=== PATIENT | female | born 1980 | race African-American/Black ===

== ENCOUNTER 2019-01-14 17:25 | Emergency (ER) | payer SELFPAY ==
[2019-01-14 18:14] LABS: Absolute Lymphocytes (CBC) 1.9 K/uL (0.7-4.9); Basophils % 0.4 % (0-1.3); Eosinophils % 1.4 % (0-4.4); Hematocrit 35.8 % (36.0-45.0); Lymphocytes % 21.4 % (15.3-44.8); MPV 10.4 fL (7.6-11.3)
[2019-01-14 18:31] LABS: Potassium 3.9 mmol/L (3.5-5.1)
[2019-01-14 18:56] LABS: Urine Blood 3+ (NEG); Urine Glucose NEGATIVE (NEG); Urine Protein 2+ (NEG); Urine Specific Gravity >1.030 (1.005-1.030); Urine pH 5.5 (5.0-7.0)
--- NOTE | 2019-01-14 22:04 | ER ---
Nurse's Notes [facility] Name: Miguel Weber Age: 38 yrs Sex: Female : 1980 Arrival Date: 01/14/2019 Time: 17:27 Bed 23 Private MD: Unknown, Unknown Diagnosis: Spontaneous Presentation: 01/14 17:31 Presenting complaint: Patient states: She had a miscarriage last month, her bleeding aj1 started again 2 days ago, and then today it became heavy with clots. Transition of care: patient was not received from another setting of care. Onset of symptoms was January 14, 2019. Risk Assessment: Do you want to hurt yourself or someone else? Patient reports no desire to harm self or others. Initial Sepsis Screen: Does the patient meet any 2 criteria? HR > 90 bpm. No. Patient's initial sepsis screen is negative. Does the patient have a suspected source of infection? No. Patient's initial sepsis screen is negative. Care prior to arrival: None. 17:31 Method Of Arrival: Ambulatory aj1 17:31 Acuity: CAMILA 3 aj1 Triage Assessment: 17:33 General: Appears in no apparent distress. comfortable, Behavior is calm, cooperative, aj1 appropriate for age. Pain: Complains of pain in right lower quadrant and left lower quadrant Pain currently is 6 out of 10 on a pain scale. Neuro: Level of Consciousness is awake, alert, obeys commands. Cardiovascular: Patient's skin is warm and dry. Respiratory: Airway is patent Respiratory effort is even, unlabored, Respiratory pattern is regular, symmetrical. : Reports vaginal bleeding that is bright red, with clots, heavy flow. [employer]: 17:33 LMP 12/2018 aj1 18:13 6, Full Term 4, 1, LMP 10/29/2018, Verified, EDC 08/05/2019, jr8 Gestational age from LMP: 11 weeks 1 day, LMP is approximate - reports 6 weeks gestation on 12/10/18 Historical: - Allergies: 17:33 Phenergan; aj1 - Home Meds: 17:33 None [Active]; aj1 - PMHx: 17:33 None; aj1 - PSHx: 17:33 None; aj1 - Immunization history:: Flu vaccine is not up to date. - Social history:: Smoking status: Patient/guardian denies using tobacco. - Ebola Screening: : Patient denies travel to an Ebola-affected area in the 21 days before illness onset. Screenin:14 Abuse screen: Denies threats or abuse. Denies injuries from another. Nutritional mg2 screening: No deficits noted. Tuberculosis screening: No symptoms or risk factors identified. Fall Risk IV access (20 points). Assessment: 18:14 General: Appears in no apparent distress. comfortable, Behavior is calm, cooperative. mg2 Pain: Complains of pain in abdomen Pain does not radiate. Pain currently is 1 out of 10 on a pain scale. Quality of pain is described as crampy, Pain began gradually. Neuro: Level of Consciousness is awake, alert, obeys commands, Oriented to person, place, time, situation. Cardiovascular: Capillary refill < 3 seconds Patient's skin is warm and dry. Respiratory: Airway is patent Respiratory effort is even, unlabored, Respiratory pattern is regular, symmetrical. GI: No signs and/or symptoms were reported involving the gastrointestinal system. : Reports pain lower quadrant(s) vaginal bleeding that is. EENT: No signs and/or symptoms were reported regarding the EENT system. Derm: Skin is intact, is healthy with good turgor, Skin is pink, warm \T\ dry. normal. Musculoskeletal: Circulation, motion, and sensation intact. Capillary refill < 3 seconds. Vital Signs: 17:33 BP 133 / 62; Pulse 99; Resp 18; Temp 99.2; Pulse Ox 100% on R/A; Weight 88.45 kg (R); aj1 Height 5 ft. 2 in. (157.48 cm) (R); 20:03 BP 108 / 59; Pulse 65; Resp 17; Pulse Ox 100% on R/A; Pain 0/10; mg2 22:10 BP 110 / 78; Pulse 70; Resp 18; Temp 98; Pulse Ox 100% on R/A; Pain 0/10; mg2 17:33 Body Mass Index 35.67 (88.45 kg, 157.48 cm) aj1 ED Course: 17:27 Patient arrived in ED. ag5 17:28 Unknown, Unknown is Private Physician. ag5 17:33 Triage completed. aj1 17:33 Arm band placed on Patient placed in an exam room. aj1 17:44 Zion Aguilar PA is [facility]. jr8 17:44 Rey Woodward MD is Attending Physician. jr8 17:58 Den Mims, RN is Primary Nurse. mg2 18:14 No provider procedures requiring assistance completed. Inserted saline lock: 20 gauge mg2 in right antecubital area, using aseptic technique. Blood collected. 18:17 Patient has correct armband on for positive identification. mg2 20:49 US Transvaginal Study (Probe) In Process Unspecified. EDMS 22:10 IV discontinued, intact, bleeding controlled, No redness/swelling at site. Pressure mg2 dressing applied. Administered Medications: No medications were administered Outcome: 22:03 Discharge ordered by . jr8 22:11 Discharged to home ambulatory, with family. mg2 22:11 Condition: stable 22:11 Discharge instructions given to patient, family, Instructed on discharge instructions, follow up and referral plans. Demonstrated understanding of instructions, follow-up care. 22:11 Patient left the ED. mg2 Signatures: Dispatcher [employer] EDNV Jessica Perez RN RN aj1 Zion Aguilar PA PA jr8 Den Mims, ROSIE RN mg2 Javier Mckeon ag5
--- NOTE | 2019-01-14 22:05 | EDPHYS ---
Physician Documentation [facility] Name: Miguel Weber Age: 38 yrs Sex: Female : 1980 Arrival Date: 01/14/2019 Time: 17:27 Bed 23 Private MD: Unknown, Unknown ED Physician Rey Woodward HPI: 01/14 18:13 This 38 yrs old Black Female presents to ER via Ambulatory with complaints of jr8 HEMMORRHAGING. 18:13 The patient presents with vaginal bleeding that is heavy, with clots, changing tampon jr8 every 5 minutes for past 2 hours. Onset: The symptoms/episode began/occurred acutely, today. Modifying factors: The symptoms are alleviated by nothing, the symptoms are aggravated by movement, walking. Associated signs and symptoms: Pertinent positives: cramping, Pertinent negatives: dysuria, fever, vaginal discharge, vomiting. Severity of symptoms: At their worst the symptoms were moderate, in the emergency department the symptoms are unchanged. The patient is sexually active. The patient has not experienced similar symptoms in the past. Reports bleeding intermittently since 12/10/18, has not seen TRANSITIONAL NURSE, bleeding had mostly resolved except small amount of spotting. Today patient woke up with heavy vaginal bleeding that has gradually worsened, increased bleeding with clots x 2 hours and reports changing tampon every 15 minutes for the past 2 hours. Mild lower abdominal cramping, took aleve with some relief. TRANSITIONAL NURSE: 17:33 LMP 12/2018 aj1 18:13 6, Full Term 4, 1, LMP 10/29/2018, Verified, EDC 08/05/2019, jr8 Gestational age from LMP: 11 weeks 1 day, LMP is approximate - reports 6 weeks gestation on 12/10/18 Historical: - Allergies: 17:33 Phenergan; aj1 - Home Meds: 17:33 None [Active]; aj1 - PMHx: 17:33 None; aj1 - PSHx: 17:33 None; aj1 - Immunization history:: Flu vaccine is not up to date. - Social history:: Smoking status: Patient/guardian denies using tobacco. - Ebola Screening: : Patient denies travel to an Ebola-affected area in the 21 days before illness onset. ROS: 18:13 Positive for vaginal bleeding, Negative for urinary symptoms, burning with jr8 urination, difficulty urinating, vaginal itching. 18:13 Constitutional: Negative for fever, chills, and weight loss, Eyes: Negative for injury, pain, redness, and discharge, ENT: Negative for injury, pain, and discharge, Neck: Negative for injury, pain, and swelling, Cardiovascular: Negative for chest pain, palpitations, and edema, Respiratory: Negative for shortness of breath, cough, wheezing, and pleuritic chest pain, Abdomen/GI: Negative for abdominal pain, nausea, vomiting, diarrhea, and constipation, Back: Negative for injury and pain, MS/Extremity: Negative for injury and deformity, Skin: Negative for injury, rash, and discoloration, Neuro: Negative for headache, weakness, numbness, tingling, and seizure. Exam: 18:13 Constitutional: This is a well developed, well nourished patient who is awake, alert, jr8 and in no acute distress. Head/Face: Normocephalic, atraumatic. Eyes: Pupils equal round and reactive to light, extra-ocular motions intact. Lids and lashes normal. Conjunctiva and sclera are non-icteric and not injected. Cornea within normal limits. Periorbital areas with no swelling, redness, or edema. Cardiovascular: Regular rate and rhythm with a normal S1 and S2. No gallops, murmurs, or rubs. Normal PMI, no JVD. No pulse deficits. Respiratory: Lungs have equal breath sounds bilaterally, clear to auscultation and percussion. No rales, rhonchi or wheezes noted. No increased work of breathing, no retractions or nasal flaring. Abdomen/GI: Soft, non-tender, with normal bowel sounds. No distension or tympany. No guarding or rebound. No evidence of tenderness throughout. Back: No spinal tenderness. No costovertebral tenderness. Full range of motion. Skin: Warm, dry with normal turgor. Normal color with no rashes, no lesions, and no evidence of cellulitis. MS/ Extremity: Pulses equal, no cyanosis. Neurovascular intact. Full, normal range of motion. Neuro: Awake and alert, GCS 15, oriented to person, place, time, and situation. Cranial nerves II-XII grossly intact. Motor strength 5/5 in all extremities. Sensory grossly intact. Cerebellar exam normal. Normal gait. Vital Signs: 17:33 BP 133 / 62; Pulse 99; Resp 18; Temp 99.2; Pulse Ox 100% on R/A; Weight 88.45 kg (R); aj1 Height 5 ft. 2 in. (157.48 cm) (R); 20:03 BP 108 / 59; Pulse 65; Resp 17; Pulse Ox 100% on R/A; Pain 0/10; mg2 22:10 BP 110 / 78; Pulse 70; Resp 18; Temp 98; Pulse Ox 100% on R/A; Pain 0/10; mg2 17:33 Body Mass Index 35.67 (88.45 kg, 157.48 cm) aj1 MDM: 17:44 Patient medically screened. jr8 22:02 Data reviewed: vital signs, nurses notes, lab test result(s), radiologic studies, jr8 ultrasound. Data interpreted: Pulse oximetry: on room air is 100 %. Interpretation: normal. Counseling: I had a detailed discussion with the patient and/or guardian regarding: the historical points, exam findings, and any diagnostic results supporting the discharge/admit diagnosis, lab results, radiology results, the need for outpatient follow up, an OB/Gyne specialist, to return to the emergency department if symptoms worsen or persist or if there are any questions or concerns that arise at home. 22:05 Differential diagnosis: abruptio placentae, dysfunctional uterine bleeding, jr8 dysmenorrhea, ectopic , menorrhea, threatened Ab, inevitable Ab, complete Ab, retained Ab, septic Ab, missed Ab, placenta previa. Data reviewed: vital signs, nurses notes, lab test result(s), radiologic studies, ultrasound, and as a result, I will discharge patient. ED course: Pt actively miscarrying on ultrasound. Discussed findings with patient and . Patient hemodynamically stable and comfortable at this time. To be discharged home, pelvic rest (no tampons), may take several days-weeks for bleeding and cramping to resolve. Discussed importance of follow up with TRANSITIONAL NURSE, patient verbalizes understanding. Patient to return to ER for any increased vaginal bleeding or pain or fever, verbalized understanding. 01/14 17:45 Order name: CBC with Diff; Complete Time: 18:17 jr8 01/14 17:45 Order name: Basic Metabolic Panel; Complete Time: 18:37 jr8 01/14 17:45 Order name: HCG-Quantitative; Complete Time: 18:37 jr8 01/14 17:45 Order name: US Transvaginal Study (Probe) jr8 01/14 18:50 Order name: Urine Dipstick--Ancillary (enter results); Complete Time: 18:57 ms 01/14 18:50 Order name: Urine --Ancillary (enter results); Complete Time: 18:57 ms 01/14 17:45 Order name: Urine Dipstick-Ancillary (obtain specimen); Complete Time: 18:46 jr8 Administered Medications: No medications were administered Disposition: 01/15 07:22 Co-signature as Attending Physician, Rey Woodward MD. Disposition: 01/14/19 22:03 Discharged to Home. Impression: Spontaneous . - Condition is Stable. - Discharge Instructions: Miscarriage. - Medication Reconciliation Form, Thank You Letter, Antibiotic Education, Prescription Opioid Use form. - Follow up: Private Physician; When: 2 - 3 days; Reason: Recheck today's complaints, Continuance of care, Re-evaluation by your physician. - Problem is new. - Symptoms have improved. Signatures: Dispatcher [employer] EDMS Jessica Perez RN RN aj1 Zion Aguilar PA PA jr8 Rey Woodward MD MD Den Mims RN RN mg2 Corrections: (The following items were deleted from the chart) 01/14 21:13 18:13 Reports miscarriage 12/10/18, seen in ER and did not follow up with TRANSITIONAL NURSE, jr8 bleeding had mostly resolved except small amount of spotting. Today patient woke up with heavy vaginal bleeding that has gradually worsened, increased bleeding with clots x 2 hours and reports changing tampon every 15 minutes for the past 2 hours. Mild lower abdominal cramping, took aleve with some relief. jr8 21:13 18:13 6, Full Term 4, 2, LMP N/A - recent miscarriage jr8 jr8 22:11 22:03 01/14/2019 22:03 Discharged to Home. Impression: Spontaneous . Condition mg2 is Stable. Forms are Medication Reconciliation Form, Thank You Letter, Antibiotic Education, Prescription Opioid Use. Follow up: Private Physician; When: 2 - 3 days; Reason: Recheck today's complaints, Continuance of care, Re-evaluation by your physician. Problem is new. Symptoms have improved. jr8
--- NOTE | 2019-01-15 12:32 | RAD REPORT ---
EXAM DESCRIPTION: US - Transvaginal Study Probe - 01/14/2019 8:48 pm CLINICAL HISTORY: Abd pain;Vaginal bleeding Pelvic pain. COMPARISON: No comparisons FINDINGS: The uterus is normal in size, shape and echotexture. The uterus measures 11.2 x 6.6 x 5.4 cm. No IUP is identified. Complex fluid collection is seen ovoid in shape in the lower uterine segment me asuring 2.2 cm in thickness. This may represent blood product. The left ovary was not seen due to bowel gas. The right ovary measures 2.9 x 2.7 x 1.9 cm. Normal Doppler blood flow was demonstrated to the right ovary. No significant pelvic ascites. IMPRESSION: No normal IUP findings are present.A complex ovoid shaped collection in the lower uterin e segment noted measuring 2.2 cm, possibly blood product. Advise serial HCG levels until normalizatio n and follow-up pelvic sonography in 10-12 days.
== END 2019-01-14 22:11 | disposition home or self-care (01) ==
LOC: ER 17:25
DX: O03.9 Complete or unspecified spontaneous abortion without complication (principal); Z88.8 Allergy status to other drugs, medicaments and biological substances
CPT/HCPCS: 36415; 76830; 80048; 81003; 81025; 84702; 85025; 99283